=== PATIENT | female | born 1940 | race Caucasian/White ===

== ENCOUNTER 2022-07-30 16:59 | Emergency (ER) | payer BC ==
[~2022-07-30] VITALS: Ht 162.6 cm; Wt 50.3 kg
[2022-07-30 17:00] VITALS: BP_SYST 135
--- NOTE | 2022-07-30 17:30 | NUR ---
Patient to ER bed 02 to gown for evaluation. Side rails up.
--- NOTE | 2022-07-30 17:35 | NUR ---
PATIENT BROUGHT IN ACCOMPANIED BY COMPLAINING OF BILATERAL TEMPORAL FIERRO X 1 WEEK. 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 WAS SEEN BY PMD AND CT DONE ON THURSDAY AND WAS NEGATIVE. DENIES ANY BLURRED VISION OR DIZZINESS. PATIENT AOX4. PAIN 4/ REPORTS GIVING PATIENT TYLENOL WITH NO RELIEF. AWAITING MD SALGUERO.
--- NOTE | 2022-07-30 17:38 | NUR ---
ER Dr. RODRIGUEZ at bedside examining patient.
--- NOTE | 2022-07-30 17:40 | NUR ---
Patient bib spouse from home. Patient a&ox4. Chief Complaint: Frontal FIERRO rated at 5/10 x1d. Patient stable in bed with spouse at bedside.
[2022-07-30] MEDS ORDERED: HYDROcodone/ACETAMIN 7.5-325 MG TAB PO ONE (17:45)
[2022-07-30] MEDS ORDERED: IBUPROFEN 600 MG TABLET PO ONE (17:45)
[2022-07-30] MEDS ORDERED: DONE10TA4 PO (17:51)
[2022-07-30] MEDS ORDERED: MEMA10TA56 PO (17:51)
[2022-07-30] MEDS ORDERED: CLOP75TA32 PO (17:51)
[2022-07-30] MEDS ORDERED: PRED10TA PO (17:51)
[2022-07-30] MEDS ORDERED: DOXY100C5 PO (17:51)
[2022-07-30] MEDS ORDERED: LIP80 PO (17:51)
[2022-07-30] MEDS ORDERED: DULO20CA PO (17:51)
--- NOTE | 2022-07-30 17:51 | NUR ---
Medication reconciliation completed with information provided by PATIENT'S BOTTLE. Any prior medication reconciliation on file was reviewed and corrected.
--- NOTE | 2022-07-30 17:58 | NUR ---
MEDICATED PER MD ORDERS. INFORMED AWAITING BLOOD TEST RESULTS AND PAIN REASSESSMENT
[2022-07-30 18:11] LABS: BASOPHILS % (AUTO) 0.3 % (0.0-2.0); EOSINOPHILS % (AUTO) 0.4 % (0.0-4.0); HEMATOCRIT 39.8 % (36-48); HEMOGLOBIN 13.2 g/dL (12.0-16.0); LYMPHOCYTES # (AUTO) 2.1 K/uL (1.0-5.5); LYMPHOCYTES % (AUTO) 20.1 % (20.5-51.5); MEAN CORPUSCULAR HEMOGLOBIN 30 pg (27-31); MEAN CORPUSCULAR HGB CONC 33 % (32-36); MEAN CORPUSCULAR VOLUME 91 fL (79.0-98.0); MONOCYTES # (AUTO) 0.9 K/uL (0.0-1.0); MONOCYTES % (AUTO) 8.9 % (1.7-9.3); NEUTROPHILS # (AUTO) 7.2 K/uL (1.8-7.7); NEUTROPHILS % (AUTO) 70.3 % (40.0-70.0); PLATELET COUNT (AUTO) 212 K/uL (130-430); RED BLOOD CELL COUNT(AUTO) 4.39 MIL/uL (4.2-6.2); RED CELL DISTRIBUTION WIDTH 14.4 % (9.0-15.0); WHITE BLOOD COUNT (AUTO) 10.3 K/uL (4.8-10.8)
[2022-07-30 18:15] LABS: ERYTHROCYTE SEDIMENTATION RATE 8 MM/HR (0-20)
[2022-07-30 18:23] LABS: ALANINE AMINOTRANSFERASE 94 U/L (12-78); ALBUMIN 3.3 g/dL (3.4-4.8); ANION GAP 6 (5-15); ASPARTATE AMINOTRANSFERASE 64 U/L (10-37); CALCIUM 8.8 mg/dL (8.4-11.0); CHLORIDE 103 mmol/L (98-107); CREATININE 0.99 mg/dL (0.55-1.30); GLUCOSE 78 mg/dL (70-99); TOTAL BILIRUBIN 0.4 mg/dL (0.0-1.0); UREA NITROGEN, BLOOD 23 mg/dL (8-21)
[2022-07-30 18:24] LABS: C-REACTIVE PROTEIN QUANT < 0.2 mg/dL (0-0.5)
--- NOTE | 2022-07-30 18:29 | NUR ---
Pain reassessment patient reports 8/10 pain. Patient was sitting up right when medication was administered PO. Patient reported pain at 5/10 premedication. Patient's HOB elevated to 30 degrees, and lights turned off. Patient declined ice pack.
[2022-07-30] MEDS ORDERED: MORPHINE 2 MG/ML INJ. SYRINGE IM ONE (18:45)
[2022-07-30] MEDS ORDERED: HYDR-3917 PO (19:11)
[2022-07-30] MEDS ORDERED: IBUP-2018 PO (19:11)
[2022-07-30 19:38] VITALS: BP_SYST 126
--- NOTE | 2022-07-30 19:38 | NUR ---
Patient given written and verbal discharge instructions and verbalizes understanding. ER MD discussed with patient the results and treatment provided. Patient in stable condition. ID arm band removed. Rx of motrin and norco given. Patient educated on pain management and to follow up with PMD. Pain Scale 0/10 Opportunity for questions provided and answered. Medication side effect fact sheet provided.
== END 2022-07-30 19:38 | disposition home or self-care (01) ==
LOC: SED 16:59
DX: R51.9 Headache, unspecified (principal); I10 Essential (primary) hypertension; Z79.899 Other long term (current) drug therapy
CPT/HCPCS: 99283; 80053; 85025; 85651; 86140; 36415; 96372; J2270

== ENCOUNTER 2022-08-01 15:25 | Emergency (ER) | payer BC ==
[~2022-08-01] VITALS: Ht 162.6 cm; Wt 50.3 kg
[~2022-08-01 15:25] MED LIST: CLOP75TA32 PO; DONE10TA4 PO; DOXY100C5 PO; DULO20CA PO; HYDR-3917 PO; IBUP-2018 PO; LIP80 PO; MEMA10TA56 PO; PRED10TA PO
[2022-08-01 16:00] VITALS: BP_SYST 141
--- NOTE | 2022-08-01 16:00 | NUR ---
Patient to ER bed 02 to gown for evaluation. Side rails up. Report given to ERIKA ARNOLD
--- NOTE | 2022-08-01 16:01 | NUR ---
PT BIB AWAKE AND ALERT AOX 4. NO SOB OR DISTRESS. PT C/O HEAD ACHES. PT STATES PAIN 11/24. PT DENIES N/V/D. PT HAS HX OF 2 CVA WITH NO DEFICITS.
--- NOTE | 2022-08-01 16:05 | NUR ---
MD DR CLEMONS AT BEDSIDE
[2022-08-01 16:10] LABS: BILIRUBIN,URINE NEGATIVE (NEGATIVE); BLOOD, URINE NEGATIVE (NEGATIVE); CLARITY/URINE CLEAR (CLEAR); COLOR,URINE YELLOW (YELLOW); GLUCOSE,URINE NEGATIVE (NEGATIVE); KETONES,URINE TRACE (NEGATIVE); LEUKOCYTE ESTERASE ,URINE TRACE (NEGATIVE); NITRITE, URINE NEGATIVE (NEGATIVE); PH,URINE 5.5 (5.0-8.0); PROTEIN URINE 1+ (NEGATIVE); UROBILINOGEN,URINE 0.2 (0.2-1.0)
[2022-08-01] MEDS ORDERED: DIPHENHYDRAMINE INJ 50 MG/ML VIAL IVP ONE (16:15)
[2022-08-01] MEDS ORDERED: METOCLOPRAMIDE HCL 10 MG/2 ML VIAL IVP ONE (16:15)
[2022-08-01] MEDS ORDERED: KETOROLAC TROMETHAMINE 15 MG VIAL IVP ONE (16:15)
[2022-08-01 16:24] LABS: BACTERIA,URINE FEW /HPF (None Seen); MUCUS,URINE 1+ /LPF (None Seen); RBC,URINE 0-3 /HPF (0-3)
[2022-08-01 17:37] VITALS: BP_SYST 133
--- NOTE | 2022-08-01 17:38 | NUR ---
UPON D/C PT AND DECLINED A W/C
--- NOTE | 2022-08-01 17:38 | NUR ---
Patient given written and verbal discharge instructions and verbalizes understanding. ER MD DR CLEMONS discussed with patient the results and treatment provided. Patient in stable condition. ID arm band removed. IV catheter removed intact and dressing applied, no active bleeding. Patient educated on pain management and to follow up with PMD. Pain Scale 2/10. Opportunity for questions provided and answered. Medication side effect fact sheet provided.
== END 2022-08-01 17:38 | disposition home or self-care (01) ==
LOC: SED 15:25
DX: R51.9 Headache, unspecified (principal); I10 Essential (primary) hypertension; Z79.899 Other long term (current) drug therapy
CPT/HCPCS: 99284; 96374; 96375; 81000; 93005; J1200; J1885; J2765

== ENCOUNTER 2022-09-20 18:35 | Emergency (ER) | payer BC ==
[~2022-09-20] VITALS: Ht 157.5 cm; Wt 65.8 kg
[2022-09-20 18:50] VITALS: BP_SYST 184
[2022-09-20] MEDS ORDERED: hydrALAZINE HCL 20 MG/ML VIAL IVP ONE (19:15)
[2022-09-20 19:33] LABS: BASOPHILS % (AUTO) 0.4 % (0.0-2.0); EOSINOPHILS # (AUTO) 0.1 K/uL (0.0-0.4); HEMATOCRIT 41.4 % (36-48); HEMOGLOBIN 13.8 g/dL (12.0-16.0); LYMPHOCYTES % (AUTO) 24.1 % (20.5-51.5); MEAN CORPUSCULAR HEMOGLOBIN 31 pg (27-31); MEAN CORPUSCULAR HGB CONC 33 % (32-36); MEAN CORPUSCULAR VOLUME 92 fL (79.0-98.0); MONOCYTES # (AUTO) 0.7 K/uL (0.0-1.0); MONOCYTES % (AUTO) 8.1 % (1.7-9.3); NEUTROPHILS # (AUTO) 5.5 K/uL (1.8-7.7); NEUTROPHILS % (AUTO) 66.4 % (40.0-70.0); PLATELET COUNT (AUTO) 172 K/uL (130-430); RED CELL DISTRIBUTION WIDTH 15.3 % (9.0-15.0); WHITE BLOOD COUNT (AUTO) 8.3 K/uL (4.8-10.8)
[2022-09-20 19:47] LABS: ANION GAP 9 (5-15); CALCIUM 8.6 mg/dL (8.4-11.0); CHLORIDE 105 mmol/L (98-107); CREATININE 1.02 mg/dL (0.55-1.30); GLUCOSE 114 mg/dL (70-99); UREA NITROGEN, BLOOD 16 mg/dL (8-21)
[2022-09-20 19:54] LABS: ALANINE AMINOTRANSFERASE 44 U/L (12-78); ALBUMIN 3.6 g/dL (3.4-4.8); ASPARTATE AMINOTRANSFERASE 31 U/L (10-37); TOTAL BILIRUBIN 0.8 mg/dL (0.0-1.0)
[2022-09-20 20:33] VITALS: BP_SYST 155
== END 2022-09-20 20:34 | disposition home or self-care (01) ==
LOC: SED 18:35
DX: I10 Essential (primary) hypertension (principal); R51.9 Headache, unspecified; Z20.822 Contact with and (suspected) exposure to COVID-19; Z86.73 Personal history of transient ischemic attack (TIA), and cerebral infarction without residual deficits
CPT/HCPCS: 99284; 96374; 87426; 80053; 85025; 84484; 36415; 93005; J0360

== ENCOUNTER 2023-03-26 19:12 | Emergency (ER) | payer BC ==
[~2023-03-26] VITALS: Ht 167.6 cm; Wt 59.0 kg
[2023-03-26 19:15] VITALS: BP_SYST 161; PULSE 81; RESP 20; TEMP 97.8; O2SAT 97
[2023-03-26 20:23] LABS: BASOPHILS # (AUTO) 0.1 K/uL (0.0-0.2); BASOPHILS % (AUTO) 0.6 % (0.0-2.0); EOSINOPHILS # (AUTO) 0.1 K/uL (0.0-0.4); EOSINOPHILS % (AUTO) 0.6 % (0.0-4.0); HEMATOCRIT 39.3 % (36-48); HEMOGLOBIN 13.2 g/dL (12.0-16.0); LYMPHOCYTES # (AUTO) 1.3 K/uL (1.0-5.5); LYMPHOCYTES % (AUTO) 11.7 % (20.5-51.5); MEAN CORPUSCULAR HEMOGLOBIN 30 pg (27-31); MEAN CORPUSCULAR HGB CONC 34 % (32-36); MEAN CORPUSCULAR VOLUME 91 fL (79.0-98.0); MONOCYTES # (AUTO) 0.8 K/uL (0.0-1.0); MONOCYTES % (AUTO) 7.2 % (1.7-9.3); NEUTROPHILS % (AUTO) 79.9 % (40.0-70.0); PLATELET COUNT (AUTO) 254 K/uL (130-430); RED BLOOD CELL COUNT(AUTO) 4.35 MIL/uL (4.2-6.2); RED CELL DISTRIBUTION WIDTH 13.7 % (9.0-15.0); WHITE BLOOD COUNT (AUTO) 11.2 K/uL (4.8-10.8)
[2023-03-26 20:38] LABS: ANION GAP 6 (5-15); CALCIUM 8.8 mg/dL (8.4-11.0); CARBON DIOXIDE 31 mmol/L (23-29); CHLORIDE 104 mmol/L (98-107); CREATININE 0.89 mg/dL (0.55-1.30); GLUCOSE 109 mg/dL (74-106); SODIUM SERUM 141 mmol/L (136-145); UREA NITROGEN, BLOOD 14 mg/dL (8-21)
[2023-03-26 20:41] LABS: INR 1.1 (0.8-1.2); PROTHROMBIN TIME 11.1 SECS (9.5-12.5)
[2023-03-26 20:43] LABS: ALANINE AMINOTRANSFERASE 18 U/L (12-78); ALBUMIN 3.2 g/dL (3.4-4.8); ASPARTATE AMINOTRANSFERASE 23 U/L (10-37); TOTAL BILIRUBIN 1.1 mg/dL (0.0-1.0)
[2023-03-26 20:51] LABS: POTASSIUM 4.3 mmol/L (3.5-5.1)
[2023-03-26 21:31] VITALS: BP_SYST 163; PULSE 74; RESP 18; O2SAT 97
== END 2023-03-26 21:31 | disposition home or self-care (01) ==
LOC: SED 19:12
DX: Z00.00 Encounter for general adult medical examination without abnormal findings (principal); E16.2 Hypoglycemia, unspecified; R41.82 Altered mental status, unspecified; I10 Essential (primary) hypertension; Z79.899 Other long term (current) drug therapy
CPT/HCPCS: 36415; 70450-TC; 76376; 80053; 82962; 85025; 85610-TC; 85730-TC; 99284

== ENCOUNTER → 2023-04-20 | Emergency (ER) | payer BC ==
[~2023-04-20] VITALS: Ht 157.5 cm; Wt 52.6 kg
[~2023-04-20] MED LIST changes: +ATOR-1 PO; +DULO20CA19 PO; +LIDO700A30 TP; +METO-540 PO
[2023-04-20 17:39] VITALS: BP_SYST 138; PULSE 75; RESP 18; TEMP 98.3; O2SAT 97
== END | disposition left against medical advice (07) ==
LOC: SED 17:16
DX: M79.662 Pain in left lower leg (principal); Z53.21 Procedure and treatment not carried out due to patient leaving prior to being seen by health care provider
CPT/HCPCS: 99281

== ENCOUNTER 2023-04-21 11:25 | Inpatient (IN) | payer BC ==
[~2023-04-21] VITALS: Ht 157.5 cm; Wt 54.4 kg
[~2023-04-21 11:25] MED LIST changes: -ATOR-1 PO; -DULO20CA19 PO; -LIDO700A30 TP; -METO-540 PO
[2023-04-21 11:38] VITALS: BP_SYST 152; PULSE 72; RESP 18; TEMP 97.4; O2SAT 93
[2023-04-21] MEDS ORDERED: traMADol HCL HCL 50 MG TABLET (ULTRAM) PO ONE (12:30)
[2023-04-21 12:40] LABS: BASOPHILS % (AUTO) 0.3 % (0.0-2.0); EOSINOPHILS # (AUTO) 0.1 K/uL (0.0-0.4); EOSINOPHILS % (AUTO) 0.6 % (0.0-4.0); HEMATOCRIT 40.9 % (36-48); HEMOGLOBIN 13.7 g/dL (12.0-16.0); LYMPHOCYTES # (AUTO) 0.8 K/uL (1.0-5.5); LYMPHOCYTES % (AUTO) 8.9 % (20.5-51.5); MEAN CORPUSCULAR HEMOGLOBIN 30 pg (27-31); MEAN CORPUSCULAR HGB CONC 34 % (32-36); MEAN CORPUSCULAR VOLUME 90 fL (79.0-98.0); MONOCYTES # (AUTO) 0.6 K/uL (0.0-1.0); MONOCYTES % (AUTO) 6.2 % (1.7-9.3); NEUTROPHILS # (AUTO) 7.8 K/uL (1.8-7.7); PLATELET COUNT (AUTO) 230 K/uL (130-430); RED BLOOD CELL COUNT(AUTO) 4.55 MIL/uL (4.2-6.2); RED CELL DISTRIBUTION WIDTH 14.4 % (9.0-15.0); WHITE BLOOD COUNT (AUTO) 9.2 K/uL (4.8-10.8)
[2023-04-21 12:54] LABS: ANION GAP 6 (5-15); CALCIUM 9.4 mg/dL (8.4-11.0); CARBON DIOXIDE 30 mmol/L (23-29); CHLORIDE 102 mmol/L (98-107); CREATININE 0.86 mg/dL (0.55-1.30); GLUCOSE 101 mg/dL (74-106); POTASSIUM 4.1 mmol/L (3.5-5.1); SODIUM SERUM 138 mmol/L (136-145); UREA NITROGEN, BLOOD 12 mg/dL (8-21)
[2023-04-21] MEDS ORDERED: ATOR-1 PO (13:57)
[2023-04-21] MEDS ORDERED: DULO20CA19 PO (13:57)
[2023-04-21] MEDS ORDERED: METO-540 PO (13:57)
[2023-04-21] MEDS ORDERED: LIDO700A30 TP (13:57)
[2023-04-21] MEDS ORDERED: LORazepam 2 MG/ML VIAL IVP ONE (17:45)
[2023-04-21 20:00] VITALS: BP_SYST 144; BP_SYST 152; PULSE 74; PULSE 75; RESP 16; RESP 18; TEMP 97.5; TEMP 97.6; O2SAT 95; O2SAT 96
[2023-04-22] VITALS (8 sets, daily range): BP systolic 114–159; PULSE 70–87; RESP 16–18; TEMP 96.8–98.8; O2SAT 95–98
[2023-04-22] MEDS ORDERED: ONDANSETRON HCL 4 MG/2 ML VIAL IVP PRN (07:15)
[2023-04-22] MEDS ORDERED: ACETAMINOPHEN 325 MG TABLET PO PRN ×2 (07:15→07:30)
[2023-04-22] MEDS ORDERED: HYDROcodone/ACETAMIN 5-325 MG TAB (NORCO/ VICODIN) PO PRN ×2 (07:15→07:30)
[2023-04-22] MEDS ORDERED: NALOXONE HCL 0.4 MG/ML AMP (NARCAN) IVP PRN ×2 (07:15)
[2023-04-22] MEDS ORDERED: LIDOCAINE PATCH 5% 1 EA TP SCH (09:00)
[2023-04-22] MEDS: MEMANTINE HCL 5 MG TABLET PO SCH ×2 (09:17→20:42)
[2023-04-22] MEDS: DONEPEZIL HCL 5 MG TABLET (ARICEPT) PO SCH (09:17)
[2023-04-22] MEDS: DOXYCYCLINE HYCLATE 100 MG CAPSULE PO SCH ×2 (09:18→20:42)
[2023-04-22] MEDS: METOPROLOL SUCCINATE 25 MG TAB.SR.24H (TOPROL XL) PO SCH (09:18)
[2023-04-22] MEDS: CLOPIDOGREL BISULFATE 75 MG TABLET PO SCH (09:18)
[2023-04-22] MEDS: DULoxetine HCL 20 MG CAPSULE.DR PO SCH (09:19)
[2023-04-22] MEDS: LIDOCAINE 4% PATCH TP SCH (09:19)
[2023-04-22] MEDS: NORMAL SALINE 5 ML DISP.SYRIN IVF SCH ×2 (14:00→21:40)
[2023-04-22] MEDS: LORazepam 2 MG/ML VIAL IVP PRN (20:10)
[2023-04-22] MEDS: ATORVASTATIN 20 MG TABLET PO SCH (20:42)
[2023-04-23] VITALS (7 sets, daily range): BP systolic 119–155; PULSE 64–86; RESP 15–20; TEMP 97.3–98.2; O2SAT 93–98
[2023-04-23 06:37] LABS: ANION GAP 11 (5-15); CALCIUM 9.9 mg/dL (8.4-11.0); CARBON DIOXIDE 28 mmol/L (23-29); CHLORIDE 100 mmol/L (98-107); CREATININE 0.75 mg/dL (0.55-1.30); GLUCOSE 96 mg/dL (74-106); POTASSIUM 3.8 mmol/L (3.5-5.1); SODIUM SERUM 139 mmol/L (136-145); UREA NITROGEN, BLOOD 13 mg/dL (8-21)
[2023-04-23] MEDS: NORMAL SALINE 5 ML DISP.SYRIN IVF SCH ×3 (06:51→21:18)
[2023-04-23 07:24] LABS: BASOPHILS % (AUTO) 0.2 % (0.0-2.0); EOSINOPHILS % (AUTO) 0.3 % (0.0-4.0); HEMATOCRIT 43.6 % (36-48); HEMOGLOBIN 14.2 g/dL (12.0-16.0); LYMPHOCYTES # (AUTO) 1.6 K/uL (1.0-5.5); LYMPHOCYTES % (AUTO) 12.2 % (20.5-51.5); MEAN CORPUSCULAR HEMOGLOBIN 30 pg (27-31); MEAN CORPUSCULAR HGB CONC 33 % (32-36); MEAN CORPUSCULAR VOLUME 91 fL (79.0-98.0); MONOCYTES # (AUTO) 1.2 K/uL (0.0-1.0); MONOCYTES % (AUTO) 9.3 % (1.7-9.3); NEUTROPHILS # (AUTO) 10.1 K/uL (1.8-7.7); PLATELET COUNT (AUTO) 213 K/uL (130-430); RED BLOOD CELL COUNT(AUTO) 4.79 MIL/uL (4.2-6.2); RED CELL DISTRIBUTION WIDTH 14.7 % (9.0-15.0); WHITE BLOOD COUNT (AUTO) 12.9 K/uL (4.8-10.8)
[2023-04-23] MEDS: CLOPIDOGREL BISULFATE 75 MG TABLET PO SCH ×2 (09:00→09:06)
[2023-04-23] MEDS: DULoxetine HCL 20 MG CAPSULE.DR PO SCH (09:05)
[2023-04-23] MEDS: MEMANTINE HCL 5 MG TABLET PO SCH ×2 (09:06→21:17)
[2023-04-23] MEDS: DOXYCYCLINE HYCLATE 100 MG CAPSULE PO SCH ×2 (09:06→21:17)
[2023-04-23] MEDS: METOPROLOL SUCCINATE 25 MG TAB.SR.24H (TOPROL XL) PO SCH (09:07)
[2023-04-23] MEDS: DONEPEZIL HCL 5 MG TABLET (ARICEPT) PO SCH (09:08)
[2023-04-23] MEDS: LIDOCAINE 4% PATCH TP SCH (10:50)
[2023-04-23] MEDS: LORazepam 2 MG/ML VIAL IVP PRN ×2 (13:26→18:36)
[2023-04-23] MEDS: ATORVASTATIN 20 MG TABLET PO SCH (21:17)
[2023-04-24 00:03] VITALS: BP_SYST 132; PULSE 71; RESP 18; TEMP 96.8; O2SAT 95
[2023-04-24 06:18] LABS: BASOPHILS % (AUTO) 0.1 % (0.0-2.0); EOSINOPHILS % (AUTO) 0.1 % (0.0-4.0); HEMATOCRIT 43.2 % (36-48); HEMOGLOBIN 14.5 g/dL (12.0-16.0); LYMPHOCYTES # (AUTO) 0.7 K/uL (1.0-5.5); LYMPHOCYTES % (AUTO) 4.9 % (20.5-51.5); MEAN CORPUSCULAR HEMOGLOBIN 30 pg (27-31); MEAN CORPUSCULAR HGB CONC 34 % (32-36); MEAN CORPUSCULAR VOLUME 90 fL (79.0-98.0); MONOCYTES # (AUTO) 1.2 K/uL (0.0-1.0); MONOCYTES % (AUTO) 8.2 % (1.7-9.3); NEUTROPHILS % (AUTO) 86.7 % (40.0-70.0); PLATELET COUNT (AUTO) 195 K/uL (130-430); RED BLOOD CELL COUNT(AUTO) 4.78 MIL/uL (4.2-6.2); RED CELL DISTRIBUTION WIDTH 14.5 % (9.0-15.0)
[2023-04-24 06:31] LABS: ANION GAP 12 (5-15); CALCIUM 9.9 mg/dL (8.4-11.0); CARBON DIOXIDE 28 mmol/L (23-29); CHLORIDE 100 mmol/L (98-107); CREATININE 0.69 mg/dL (0.55-1.30); GLUCOSE 98 mg/dL (74-106); POTASSIUM 3.9 mmol/L (3.5-5.1); SODIUM SERUM 140 mmol/L (136-145); UREA NITROGEN, BLOOD 15 mg/dL (8-21)
[2023-04-24] MEDS: NORMAL SALINE 5 ML DISP.SYRIN IVF SCH ×3 (06:37→20:49)
[2023-04-24 08:00] VITALS: BP_SYST 165; PULSE 71; RESP 15; TEMP 96.9; O2SAT 96
[2023-04-24] MEDS: DOXYCYCLINE HYCLATE 100 MG CAPSULE PO SCH ×2 (09:00→20:48)
[2023-04-24] MEDS: CLOPIDOGREL BISULFATE 75 MG TABLET PO SCH (09:00)
[2023-04-24] MEDS: DULoxetine HCL 20 MG CAPSULE.DR PO SCH (09:00)
[2023-04-24] MEDS: METOPROLOL SUCCINATE 25 MG TAB.SR.24H (TOPROL XL) PO SCH (09:00)
[2023-04-24] MEDS: DONEPEZIL HCL 5 MG TABLET (ARICEPT) PO SCH (09:00)
[2023-04-24] MEDS: MEMANTINE HCL 5 MG TABLET PO SCH ×2 (09:00→20:48)
[2023-04-24 12:00] VITALS: BP_SYST 165; PULSE 71; RESP 18; TEMP 96.9; O2SAT 96
[2023-04-24 16:00] VITALS: BP_SYST 143; PULSE 108; RESP 19; TEMP 98.2; O2SAT 99
[2023-04-24 19:00] VITALS: O2SAT 95
[2023-04-24] MEDS: LIDOCAINE 4% PATCH TP SCH (19:21)
[2023-04-24 20:00] VITALS: BP_SYST 146; PULSE 88; RESP 20; TEMP 97; O2SAT 95
[2023-04-24] MEDS: ATORVASTATIN 20 MG TABLET PO SCH (20:48)
[2023-04-25 00:01] VITALS: BP_SYST 157; PULSE 90; RESP 16; TEMP 98; O2SAT 94
[2023-04-25 04:00] VITALS: BP_SYST 148; PULSE 85; RESP 18; TEMP 98.2; O2SAT 95
[2023-04-25] MEDS: NORMAL SALINE 5 ML DISP.SYRIN IVF SCH ×3 (06:11→21:59)
[2023-04-25 07:26] LABS: ANION GAP 11 (5-15); CALCIUM 8.6 mg/dL (8.4-11.0); CARBON DIOXIDE 27 mmol/L (23-29); CHLORIDE 101 mmol/L (98-107); CREATININE 0.82 mg/dL (0.55-1.30); GLUCOSE 102 mg/dL (74-106); POTASSIUM 3.2 mmol/L (3.5-5.1); SODIUM SERUM 139 mmol/L (136-145); UREA NITROGEN, BLOOD 20 mg/dL (8-21)
[2023-04-25 08:00] VITALS: BP_SYST 138; PULSE 89; RESP 18; TEMP 97.9; O2SAT 96
[2023-04-25 08:35] LABS: BASOPHILS % (AUTO) 0.2 % (0.0-2.0); EOSINOPHILS % (AUTO) 0.1 % (0.0-4.0); HEMATOCRIT 37.9 % (36-48); HEMOGLOBIN 12.7 g/dL (12.0-16.0); LYMPHOCYTES # (AUTO) 0.8 K/uL (1.0-5.5); LYMPHOCYTES % (AUTO) 7.6 % (20.5-51.5); MEAN CORPUSCULAR HEMOGLOBIN 30 pg (27-31); MEAN CORPUSCULAR HGB CONC 34 % (32-36); MEAN CORPUSCULAR VOLUME 89 fL (79.0-98.0); MONOCYTES # (AUTO) 1.5 K/uL (0.0-1.0); MONOCYTES % (AUTO) 14.8 % (1.7-9.3); NEUTROPHILS # (AUTO) 7.7 K/uL (1.8-7.7); NEUTROPHILS % (AUTO) 77.3 % (40.0-70.0); RED BLOOD CELL COUNT(AUTO) 4.23 MIL/uL (4.2-6.2); RED CELL DISTRIBUTION WIDTH 14.4 % (9.0-15.0)
[2023-04-25 09:03] LABS: WHITE BLOOD COUNT (AUTO) 9.9 K/uL (4.8-10.8)
[2023-04-25 09:06] LABS: ERYTHROCYTE SEDIMENTATION RATE 26 MM/HR (0-20)
[2023-04-25] MEDS: METOPROLOL SUCCINATE 25 MG TAB.SR.24H (TOPROL XL) PO SCH (09:20)
[2023-04-25] MEDS: CLOPIDOGREL BISULFATE 75 MG TABLET PO SCH (09:20)
[2023-04-25] MEDS: DONEPEZIL HCL 5 MG TABLET (ARICEPT) PO SCH (09:21)
[2023-04-25] MEDS: DOXYCYCLINE HYCLATE 100 MG CAPSULE PO SCH ×2 (09:21→21:55)
[2023-04-25] MEDS: DULoxetine HCL 20 MG CAPSULE.DR PO SCH (09:23)
[2023-04-25] MEDS: MEMANTINE HCL 5 MG TABLET PO SCH ×2 (09:39→21:55)
[2023-04-25 11:03] LABS: PLATELET COUNT (AUTO) 178 K/uL (130-430)
[2023-04-25 11:57] VITALS: BP_SYST 128; PULSE 83; RESP 17; TEMP 98.5; O2SAT 95
[2023-04-25] MEDS: KCL 20 mEq in 100 mL (PREMIX) 100 ML IV SCH ×2 (12:50→15:45)
[2023-04-25] MEDS: LORazepam 2 MG/ML VIAL IVP PRN (15:35)
[2023-04-25 16:17] VITALS: BP_SYST 167; PULSE 73; RESP 17; TEMP 98.1; O2SAT 97
[2023-04-25 20:27] VITALS: BP_SYST 156; PULSE 77; RESP 18; TEMP 97.1; O2SAT 98
[2023-04-25] MEDS: ATORVASTATIN 20 MG TABLET PO SCH (21:55)
[2023-04-25] MEDS: LIDOCAINE 4% PATCH TP SCH (21:58)
[2023-04-26] VITALS (7 sets, daily range): BP systolic 133–145; PULSE 63–87; RESP 16–20; TEMP 97–98.5; O2SAT 95–98
[2023-04-26] MEDS: NORMAL SALINE 5 ML DISP.SYRIN IVF SCH ×3 (05:25→22:18)
[2023-04-26 06:56] LABS: ANION GAP 9 (5-15); CARBON DIOXIDE 27 mmol/L (23-29); CHLORIDE 103 mmol/L (98-107); CREATININE 0.64 mg/dL (0.55-1.30); GLUCOSE 99 mg/dL (74-106); POTASSIUM 3.4 mmol/L (3.5-5.1); SODIUM SERUM 139 mmol/L (136-145); UREA NITROGEN, BLOOD 19 mg/dL (8-21)
[2023-04-26 07:35] LABS: BASOPHILS % (AUTO) 0.3 % (0.0-2.0); EOSINOPHILS % (AUTO) 0.2 % (0.0-4.0); HEMATOCRIT 37.6 % (36-48); HEMOGLOBIN 12.4 g/dL (12.0-16.0); LYMPHOCYTES # (AUTO) 0.9 K/uL (1.0-5.5); LYMPHOCYTES % (AUTO) 13.7 % (20.5-51.5); MEAN CORPUSCULAR HEMOGLOBIN 30 pg (27-31); MEAN CORPUSCULAR HGB CONC 33 % (32-36); MEAN CORPUSCULAR VOLUME 90 fL (79.0-98.0); MONOCYTES % (AUTO) 14.7 % (1.7-9.3); NEUTROPHILS # (AUTO) 4.7 K/uL (1.8-7.7); NEUTROPHILS % (AUTO) 71.1 % (40.0-70.0); PLATELET COUNT (AUTO) 179 K/uL (130-430); RED BLOOD CELL COUNT(AUTO) 4.18 MIL/uL (4.2-6.2); RED CELL DISTRIBUTION WIDTH 14.6 % (9.0-15.0)
[2023-04-26 07:37] LABS: WHITE BLOOD COUNT (AUTO) 6.7 K/uL (4.8-10.8)
[2023-04-26 07:44] LABS: ERYTHROCYTE SEDIMENTATION RATE 22 MM/HR (0-20)
[2023-04-26] MEDS: CLOPIDOGREL BISULFATE 75 MG TABLET PO SCH (09:26)
[2023-04-26] MEDS: DOXYCYCLINE HYCLATE 100 MG CAPSULE PO SCH ×2 (09:27→21:00)
[2023-04-26] MEDS: MEMANTINE HCL 5 MG TABLET PO SCH ×2 (09:27→21:00)
[2023-04-26] MEDS: METOPROLOL SUCCINATE 25 MG TAB.SR.24H (TOPROL XL) PO SCH (09:27)
[2023-04-26] MEDS: DONEPEZIL HCL 5 MG TABLET (ARICEPT) PO SCH (09:28)
[2023-04-26] MEDS: DULoxetine HCL 20 MG CAPSULE.DR PO SCH (09:28)
[2023-04-26] MEDS: LORazepam 2 MG/ML VIAL IVP PRN (15:53)
[2023-04-26] MEDS: LIDOCAINE 4% PATCH TP SCH (18:44)
[2023-04-26] MEDS: ATORVASTATIN 20 MG TABLET PO SCH (21:00)
[2023-04-27 01:00] VITALS: BP_SYST 164; PULSE 81; RESP 16; TEMP 97.6; O2SAT 94
[2023-04-27 05:31] LABS: ERYTHROCYTE SEDIMENTATION RATE 21 MM/HR (0-20)
[2023-04-27] MEDS: NORMAL SALINE 5 ML DISP.SYRIN IVF SCH ×3 (05:36→22:39)
[2023-04-27 05:38] LABS: BASOPHILS % (AUTO) 0.3 % (0.0-2.0); EOSINOPHILS % (AUTO) 0.1 % (0.0-4.0); HEMATOCRIT 38.5 % (36-48); HEMOGLOBIN 12.8 g/dL (12.0-16.0); LYMPHOCYTES # (AUTO) 0.7 K/uL (1.0-5.5); LYMPHOCYTES % (AUTO) 11.9 % (20.5-51.5); MEAN CORPUSCULAR HEMOGLOBIN 30 pg (27-31); MEAN CORPUSCULAR HGB CONC 33 % (32-36); MEAN CORPUSCULAR VOLUME 90 fL (79.0-98.0); MONOCYTES # (AUTO) 0.7 K/uL (0.0-1.0); MONOCYTES % (AUTO) 11.8 % (1.7-9.3); NEUTROPHILS # (AUTO) 4.8 K/uL (1.8-7.7); NEUTROPHILS % (AUTO) 75.9 % (40.0-70.0); PLATELET COUNT (AUTO) 191 K/uL (130-430); RED BLOOD CELL COUNT(AUTO) 4.29 MIL/uL (4.2-6.2); RED CELL DISTRIBUTION WIDTH 14.6 % (9.0-15.0); WHITE BLOOD COUNT (AUTO) 6.3 K/uL (4.8-10.8)
[2023-04-27 06:37] LABS: ALANINE AMINOTRANSFERASE 22 U/L (12-78); ANION GAP 11 (5-15); ASPARTATE AMINOTRANSFERASE 39 U/L (10-37); CALCIUM 9.4 mg/dL (8.4-11.0); CARBON DIOXIDE 28 mmol/L (23-29); CHLORIDE 104 mmol/L (98-107); GLUCOSE 91 mg/dL (74-106); POTASSIUM 3.5 mmol/L (3.5-5.1); SODIUM SERUM 143 mmol/L (136-145); TOTAL BILIRUBIN 1.1 mg/dL (0.0-1.0); TOTAL PROTEIN, SERUM 6.8 g/dL (6.4-8.3); UREA NITROGEN, BLOOD 23 mg/dL (8-21)
[2023-04-27 08:00] VITALS: BP_SYST 146; PULSE 75; RESP 18; TEMP 97; O2SAT 96
[2023-04-27] MEDS: METOPROLOL SUCCINATE 25 MG TAB.SR.24H (TOPROL XL) PO SCH (09:00)
[2023-04-27] MEDS: DULoxetine HCL 20 MG CAPSULE.DR PO SCH (09:00)
[2023-04-27] MEDS: DONEPEZIL HCL 5 MG TABLET (ARICEPT) PO SCH (09:00)
[2023-04-27] MEDS: DOXYCYCLINE HYCLATE 100 MG CAPSULE PO SCH (09:00)
[2023-04-27] MEDS: CLOPIDOGREL BISULFATE 75 MG TABLET PO SCH (09:00)
[2023-04-27] MEDS: MEMANTINE HCL 5 MG TABLET PO SCH ×2 (09:00→22:38)
[2023-04-27 11:02] VITALS: BP_SYST 151; PULSE 73; RESP 16; TEMP 97; O2SAT 93
[2023-04-27 11:40] LABS: INR 1.1 (0.8-1.2)
[2023-04-27] MEDS: D5/0.45 NS 1,000 ML IV SCH ×2 (11:41→20:30)
[2023-04-27] MEDS ORDERED: NALOXONE HCL 0.4 MG/ML AMP (NARCAN) IVP ONE (12:00)
[2023-04-27] MEDS ORDERED: droNABinol 2.5 MG CAPSULE PO ONE (15:00)
[2023-04-27 15:22] VITALS: BP_SYST 143; PULSE 67; RESP 16; TEMP 97.7; O2SAT 94
[2023-04-27] MEDS: LIDOCAINE 4% PATCH TP SCH (19:00)
[2023-04-27 19:50] VITALS: O2SAT 97
[2023-04-27 20:00] VITALS: BP_SYST 158; PULSE 83; RESP 18; TEMP 97.9; O2SAT 97
[2023-04-28 00:03] VITALS: BP_SYST 155; PULSE 87; RESP 18; TEMP 97.9; O2SAT 94
[2023-04-28 05:35] LABS: BASOPHILS % (AUTO) 0.2 % (0.0-2.0); EOSINOPHILS % (AUTO) 0.2 % (0.0-4.0); HEMATOCRIT 36.8 % (36-48); HEMOGLOBIN 12.4 g/dL (12.0-16.0); LYMPHOCYTES # (AUTO) 1.2 K/uL (1.0-5.5); LYMPHOCYTES % (AUTO) 21.1 % (20.5-51.5); MEAN CORPUSCULAR HEMOGLOBIN 30 pg (27-31); MEAN CORPUSCULAR HGB CONC 34 % (32-36); MEAN CORPUSCULAR VOLUME 89 fL (79.0-98.0); MONOCYTES # (AUTO) 0.7 K/uL (0.0-1.0); MONOCYTES % (AUTO) 13.2 % (1.7-9.3); NEUTROPHILS # (AUTO) 3.6 K/uL (1.8-7.7); NEUTROPHILS % (AUTO) 65.3 % (40.0-70.0); PLATELET COUNT (AUTO) 199 K/uL (130-430); RED BLOOD CELL COUNT(AUTO) 4.15 MIL/uL (4.2-6.2); RED CELL DISTRIBUTION WIDTH 14.5 % (9.0-15.0); WHITE BLOOD COUNT (AUTO) 5.5 K/uL (4.8-10.8)
[2023-04-28 05:48] LABS: ANION GAP 8 (5-15); CALCIUM 9.1 mg/dL (8.4-11.0); CARBON DIOXIDE 30 mmol/L (23-29); CHLORIDE 103 mmol/L (98-107); CREATININE 0.76 mg/dL (0.55-1.30); GLUCOSE 115 mg/dL (74-106); POTASSIUM 3.4 mmol/L (3.5-5.1); SODIUM SERUM 141 mmol/L (136-145); UREA NITROGEN, BLOOD 18 mg/dL (8-21)
[2023-04-28] MEDS: NORMAL SALINE 5 ML DISP.SYRIN IVF SCH ×2 (06:03→22:54)
[2023-04-28] MEDS: D5/0.45 NS 1,000 ML IV SCH ×2 (06:26→16:30)
[2023-04-28 08:00] VITALS: BP_SYST 153; PULSE 71; RESP 16; TEMP 97; O2SAT 94
[2023-04-28] MEDS: DULoxetine HCL 20 MG CAPSULE.DR PO SCH (09:00)
[2023-04-28] MEDS: MEMANTINE HCL 5 MG TABLET PO SCH ×2 (09:00→22:55)
[2023-04-28] MEDS: droNABinol 2.5 MG CAPSULE PO SCH (09:00)
[2023-04-28] MEDS: DONEPEZIL HCL 5 MG TABLET (ARICEPT) PO SCH (09:00)
[2023-04-28] MEDS: METOPROLOL SUCCINATE 25 MG TAB.SR.24H (TOPROL XL) PO SCH (09:00)
[2023-04-28 11:05] VITALS: BP_SYST 153; PULSE 69; RESP 16; TEMP 97; O2SAT 93
[2023-04-28 15:03] VITALS: BP_SYST 116; PULSE 79; RESP 16; TEMP 97; O2SAT 95
[2023-04-28] MEDS: LIDOCAINE 4% PATCH TP SCH (19:00)
[2023-04-28 20:00] VITALS: BP_SYST 146; PULSE 89; RESP 16; TEMP 97.7; O2SAT 96
[2023-04-28] MEDS: ACYCLOVIR IV 500 MG in D5W 100 ML IV SCH (22:54)
[2023-04-29 00:39] VITALS: BP_SYST 141; PULSE 92; RESP 17; TEMP 97.4; O2SAT 95
[2023-04-29 05:53] LABS: BASOPHILS % (AUTO) 0.1 % (0.0-2.0); HEMATOCRIT 36.5 % (36-48); HEMOGLOBIN 12.8 g/dL (12.0-16.0); LYMPHOCYTES # (AUTO) 0.8 K/uL (1.0-5.5); LYMPHOCYTES % (AUTO) 9.5 % (20.5-51.5); MEAN CORPUSCULAR HEMOGLOBIN 31 pg (27-31); MEAN CORPUSCULAR HGB CONC 35 % (32-36); MEAN CORPUSCULAR VOLUME 87 fL (79.0-98.0); MONOCYTES # (AUTO) 0.8 K/uL (0.0-1.0); MONOCYTES % (AUTO) 9.5 % (1.7-9.3); NEUTROPHILS # (AUTO) 6.4 K/uL (1.8-7.7); NEUTROPHILS % (AUTO) 80.9 % (40.0-70.0); PLATELET COUNT (AUTO) 206 K/uL (130-430); RED BLOOD CELL COUNT(AUTO) 4.19 MIL/uL (4.2-6.2); RED CELL DISTRIBUTION WIDTH 14.2 % (9.0-15.0); WHITE BLOOD COUNT (AUTO) 7.9 K/uL (4.8-10.8)
[2023-04-29] MEDS: ACYCLOVIR IV 500 MG in D5W 100 ML IV SCH (06:19)
[2023-04-29] MEDS: NORMAL SALINE 5 ML DISP.SYRIN IVF SCH ×3 (06:19→22:00)
[2023-04-29] MEDS: D5/0.45 NS 1,000 ML IV SCH ×2 (06:19→12:30)
[2023-04-29 06:33] LABS: ANION GAP 10 (5-15); CARBON DIOXIDE 27 mmol/L (23-29); CHLORIDE 101 mmol/L (98-107); GLUCOSE 127 mg/dL (74-106); SODIUM SERUM 138 mmol/L (136-145); UREA NITROGEN, BLOOD 11 mg/dL (8-21)
[2023-04-29 06:38] LABS: INR 1.1 (0.8-1.2)
[2023-04-29 08:00] VITALS: BP_SYST 134; PULSE 79; RESP 16; TEMP 97.1; O2SAT 96
[2023-04-29] MEDS: METOPROLOL SUCCINATE 25 MG TAB.SR.24H (TOPROL XL) PO SCH (08:53)
[2023-04-29] MEDS: droNABinol 2.5 MG CAPSULE PO SCH (08:53)
[2023-04-29] MEDS: DONEPEZIL HCL 5 MG TABLET (ARICEPT) PO SCH (08:53)
[2023-04-29] MEDS: MEMANTINE HCL 5 MG TABLET PO SCH ×2 (08:53→21:00)
[2023-04-29] MEDS: KCL 40 mEq in D5W 1000 mL 1,000 ML IV SCH ×2 (09:00→15:24)
[2023-04-29] MEDS ORDERED: MAGNESIUM SULFATE 50 ML IV ONE (09:00)
[2023-04-29] MEDS ORDERED: ceFAZolin SODIUM 1 GM in D5W 100 ML IV ONE (09:30)
[2023-04-29] MEDS ORDERED: CEFAZOLIN 1 GM IVPB PREMIX 50 ML IV ONE (09:34)
[2023-04-29] MEDS ORDERED: fentaNYL CITRATE/PF 100 MCG/2 ML AMP ONE (11:31)
[2023-04-29] MEDS ORDERED: MIDAZOLAM HCL 5 MG/5 ML VIAL ONE (11:32)
[2023-04-29 13:26] VITALS: BP_SYST 147; PULSE 72; RESP 16; TEMP 97.7; O2SAT 95
[2023-04-29 16:46] LABS: BASOPHILS % (AUTO) 0.3 % (0.0-2.0); EOSINOPHILS % (AUTO) 0.1 % (0.0-4.0); HEMATOCRIT 35.7 % (36-48); HEMOGLOBIN 12.2 g/dL (12.0-16.0); LYMPHOCYTES # (AUTO) 0.9 K/uL (1.0-5.5); LYMPHOCYTES % (AUTO) 13.1 % (20.5-51.5); MEAN CORPUSCULAR HEMOGLOBIN 30 pg (27-31); MEAN CORPUSCULAR HGB CONC 34 % (32-36); MEAN CORPUSCULAR VOLUME 88 fL (79.0-98.0); MONOCYTES # (AUTO) 0.6 K/uL (0.0-1.0); NEUTROPHILS # (AUTO) 5.5 K/uL (1.8-7.7); NEUTROPHILS % (AUTO) 77.5 % (40.0-70.0); PLATELET COUNT (AUTO) 191 K/uL (130-430); RED BLOOD CELL COUNT(AUTO) 4.06 MIL/uL (4.2-6.2); RED CELL DISTRIBUTION WIDTH 13.7 % (9.0-15.0); WHITE BLOOD COUNT (AUTO) 7.1 K/uL (4.8-10.8)
[2023-04-29] MEDS: LIDOCAINE 4% PATCH TP SCH (19:00)
[2023-04-29 20:00] VITALS: BP_SYST 150; PULSE 92; RESP 18; TEMP 97.8; O2SAT 98; O2SAT 99
[2023-04-30 01:02] VITALS: BP_SYST 159; PULSE 94; RESP 16; TEMP 97.8; O2SAT 94
[2023-04-30] MEDS: KCL 40 mEq in D5W 1000 mL 1,000 ML IV SCH ×2 (05:15→16:09)
[2023-04-30] MEDS: NORMAL SALINE 5 ML DISP.SYRIN IVF SCH ×3 (05:26→20:25)
[2023-04-30 06:38] LABS: BASOPHILS % (AUTO) 0.2 % (0.0-2.0); HEMATOCRIT 33.4 % (36-48); HEMOGLOBIN 11.5 g/dL (12.0-16.0); LYMPHOCYTES # (AUTO) 0.9 K/uL (1.0-5.5); LYMPHOCYTES % (AUTO) 13.1 % (20.5-51.5); MEAN CORPUSCULAR HEMOGLOBIN 30 pg (27-31); MEAN CORPUSCULAR HGB CONC 35 % (32-36); MEAN CORPUSCULAR VOLUME 87 fL (79.0-98.0); MONOCYTES # (AUTO) 0.7 K/uL (0.0-1.0); MONOCYTES % (AUTO) 9.2 % (1.7-9.3); NEUTROPHILS # (AUTO) 5.5 K/uL (1.8-7.7); NEUTROPHILS % (AUTO) 77.5 % (40.0-70.0); PLATELET COUNT (AUTO) 187 K/uL (130-430); RED BLOOD CELL COUNT(AUTO) 3.82 MIL/uL (4.2-6.2); WHITE BLOOD COUNT (AUTO) 7.1 K/uL (4.8-10.8)
[2023-04-30 06:46] LABS: INR 1.1 (0.8-1.2); PROTHROMBIN TIME 11.3 SECS (9.5-12.5)
[2023-04-30 07:24] LABS: ANION GAP 10 (5-15); CALCIUM 8.4 mg/dL (8.4-11.0); CARBON DIOXIDE 24 mmol/L (23-29); CHLORIDE 104 mmol/L (98-107); CREATININE 1.06 mg/dL (0.55-1.30); GLUCOSE 119 mg/dL (74-106); POTASSIUM 3.1 mmol/L (3.5-5.1); SODIUM SERUM 138 mmol/L (136-145); UREA NITROGEN, BLOOD 10 mg/dL (8-21)
[2023-04-30 08:00] VITALS: BP_SYST 137; PULSE 82; RESP 16; TEMP 97.8; O2SAT 93
[2023-04-30] MEDS ORDERED: CEFAZOLIN 1 GM IVPB PREMIX 50 ML IV ONE (08:00)
[2023-04-30] MEDS ORDERED: fentaNYL CITRATE/PF 100 MCG/2 ML AMP ONE (10:50)
[2023-04-30] MEDS ORDERED: MIDAZOLAM HCL 5 MG/5 ML VIAL ONE (10:51)
[2023-04-30 15:53] VITALS: BP_SYST 146; PULSE 88; RESP 16; TEMP 98.2; O2SAT 96
[2023-04-30] MEDS: droNABinol 2.5 MG CAPSULE PO SCH (16:04)
[2023-04-30] MEDS: DONEPEZIL HCL 5 MG TABLET (ARICEPT) PO SCH (16:06)
[2023-04-30] MEDS: METOPROLOL SUCCINATE 25 MG TAB.SR.24H (TOPROL XL) PO SCH (16:07)
[2023-04-30] MEDS: MEMANTINE HCL 5 MG TABLET PO SCH ×2 (16:07→20:25)
[2023-04-30 20:00] VITALS: BP_SYST 127; PULSE 97; RESP 16; TEMP 97.2; O2SAT 95
[2023-05-01 01:12] VITALS: BP_SYST 112; PULSE 78; RESP 18; TEMP 96.8; O2SAT 98
[2023-05-01] MEDS: KCL 40 mEq in D5W 1000 mL 1,000 ML IV SCH ×3 (02:40→21:15)
[2023-05-01] MEDS: NORMAL SALINE 5 ML DISP.SYRIN IVF SCH ×3 (05:57→21:52)
[2023-05-01 06:06] LABS: HSV 1 IgG, TYPE SPECIFIC <0.91 index (0.00-0.90); HSV 2 IgG, TYPE SPECIFIC <0.91 index (0.00-0.90)
[2023-05-01 06:07] LABS: ANION GAP 6 (5-15); CALCIUM 8.6 mg/dL (8.4-11.0); CARBON DIOXIDE 26 mmol/L (23-29); CHLORIDE 104 mmol/L (98-107); CREATININE 0.96 mg/dL (0.55-1.30); GLUCOSE 105 mg/dL (74-106); POTASSIUM 4.2 mmol/L (3.5-5.1); SODIUM SERUM 136 mmol/L (136-145); UREA NITROGEN, BLOOD 11 mg/dL (8-21)
[2023-05-01 06:10] LABS: BASOPHILS % (AUTO) 0.1 % (0.0-2.0); EOSINOPHILS % (AUTO) 0.1 % (0.0-4.0); HEMATOCRIT 36.4 % (36-48); HEMOGLOBIN 12.2 g/dL (12.0-16.0); LYMPHOCYTES # (AUTO) 1.1 K/uL (1.0-5.5); LYMPHOCYTES % (AUTO) 12.2 % (20.5-51.5); MEAN CORPUSCULAR HEMOGLOBIN 30 pg (27-31); MEAN CORPUSCULAR HGB CONC 33 % (32-36); MEAN CORPUSCULAR VOLUME 89 fL (79.0-98.0); MONOCYTES # (AUTO) 0.7 K/uL (0.0-1.0); MONOCYTES % (AUTO) 7.4 % (1.7-9.3); NEUTROPHILS # (AUTO) 7.1 K/uL (1.8-7.7); NEUTROPHILS % (AUTO) 80.2 % (40.0-70.0); PLATELET COUNT (AUTO) 188 K/uL (130-430); RED BLOOD CELL COUNT(AUTO) 4.09 MIL/uL (4.2-6.2); RED CELL DISTRIBUTION WIDTH 14.2 % (9.0-15.0); WHITE BLOOD COUNT (AUTO) 8.9 K/uL (4.8-10.8)
[2023-05-01 08:00] VITALS: BP_SYST 124; PULSE 78; RESP 16; TEMP 98.2; O2SAT 97
[2023-05-01] MEDS: DONEPEZIL HCL 5 MG TABLET (ARICEPT) PO SCH (08:51)
[2023-05-01] MEDS: MEMANTINE HCL 5 MG TABLET PO SCH ×2 (08:52→21:51)
[2023-05-01] MEDS: METOPROLOL SUCCINATE 25 MG TAB.SR.24H (TOPROL XL) PO SCH (08:52)
[2023-05-01] MEDS: droNABinol 2.5 MG CAPSULE PO SCH (08:52)
[2023-05-01 09:20] VITALS: O2SAT 97
[2023-05-01 11:04] VITALS: BP_SYST 90; PULSE 81; RESP 16; TEMP 98.4; O2SAT 93
[2023-05-01 15:01] VITALS: BP_SYST 127; PULSE 83; RESP 16; TEMP 97; O2SAT 93
[2023-05-01] MEDS ORDERED: QUEtiapine FUMARATE 25 MG TABLET PO PRN (18:00)
[2023-05-01 19:00] VITALS: O2SAT 95
[2023-05-02 00:14] VITALS: BP_SYST 108; PULSE 94; RESP 20; TEMP 98.7; O2SAT 95
[2023-05-02] MEDS: NORMAL SALINE 5 ML DISP.SYRIN IVF SCH ×3 (06:00→21:33)
[2023-05-02] MEDS: KCL 40 mEq in D5W 1000 mL 1,000 ML IV SCH (07:15)
[2023-05-02 08:03] VITALS: BP_SYST 103; PULSE 81; RESP 18; TEMP 97.3; O2SAT 95
[2023-05-02] MEDS: MEMANTINE HCL 5 MG TABLET PO SCH ×2 (08:27→21:33)
[2023-05-02] MEDS: droNABinol 2.5 MG CAPSULE PO SCH (08:27)
[2023-05-02] MEDS: DONEPEZIL HCL 5 MG TABLET (ARICEPT) PO SCH (08:28)
[2023-05-02] MEDS: METOPROLOL SUCCINATE 25 MG TAB.SR.24H (TOPROL XL) PO SCH (09:00)
[2023-05-02 10:25] LABS: BASOPHILS % (AUTO) 0.1 % (0.0-2.0); EOSINOPHILS % (AUTO) 0.2 % (0.0-4.0); HEMATOCRIT 31.3 % (36-48); HEMOGLOBIN 10.3 g/dL (12.0-16.0); LYMPHOCYTES # (AUTO) 0.9 K/uL (1.0-5.5); LYMPHOCYTES % (AUTO) 10.1 % (20.5-51.5); MEAN CORPUSCULAR HEMOGLOBIN 30 pg (27-31); MEAN CORPUSCULAR HGB CONC 33 % (32-36); MEAN CORPUSCULAR VOLUME 91 fL (79.0-98.0); MONOCYTES # (AUTO) 0.7 K/uL (0.0-1.0); MONOCYTES % (AUTO) 8.4 % (1.7-9.3); NEUTROPHILS % (AUTO) 81.2 % (40.0-70.0); PLATELET COUNT (AUTO) 187 K/uL (130-430); RED BLOOD CELL COUNT(AUTO) 3.45 MIL/uL (4.2-6.2); RED CELL DISTRIBUTION WIDTH 14.1 % (9.0-15.0); WHITE BLOOD COUNT (AUTO) 8.6 K/uL (4.8-10.8)
[2023-05-02 10:47] LABS: ALANINE AMINOTRANSFERASE 36 U/L (12-78); ANION GAP 6 (5-15); ASPARTATE AMINOTRANSFERASE 50 U/L (10-37); CALCIUM 7.4 mg/dL (8.4-11.0); CARBON DIOXIDE 22 mmol/L (23-29); CHLORIDE 105 mmol/L (98-107); CREATININE 0.85 mg/dL (0.55-1.30); GLUCOSE 154 mg/dL (74-106); POTASSIUM 4.2 mmol/L (3.5-5.1); SODIUM SERUM 133 mmol/L (136-145); TOTAL BILIRUBIN 1.2 mg/dL (0.0-1.0); TOTAL PROTEIN, SERUM 4.9 g/dL (6.4-8.3); UREA NITROGEN, BLOOD 11 mg/dL (8-21)
[2023-05-02 11:13] VITALS: BP_SYST 95; PULSE 77; RESP 16; TEMP 97.7; O2SAT 96
[2023-05-02 11:17] VITALS: O2SAT 96
[2023-05-02 16:12] VITALS: BP_SYST 109; PULSE 84; RESP 16; TEMP 97.8; O2SAT 93
[2023-05-02 19:22] LABS: BASOPHILS % (AUTO) 0.1 % (0.0-2.0); LYMPHOCYTES # (AUTO) 0.9 K/uL (1.0-5.5); LYMPHOCYTES % (AUTO) 11.1 % (20.5-51.5); MEAN CORPUSCULAR HEMOGLOBIN 30 pg (27-31); NEUTROPHILS # (AUTO) 6.5 K/uL (1.8-7.7); PLATELET COUNT (AUTO) 212 K/uL (130-430); WHITE BLOOD COUNT (AUTO) 8.3 K/uL (4.8-10.8)
[2023-05-02 19:29] LABS: EOSINOPHILS % (AUTO) 0.3 % (0.0-4.0); HEMATOCRIT 35.4 % (36-48); HEMOGLOBIN 11.7 g/dL (12.0-16.0); MEAN CORPUSCULAR HGB CONC 33 % (32-36); MEAN CORPUSCULAR VOLUME 89 fL (79.0-98.0); MONOCYTES # (AUTO) 0.9 K/uL (0.0-1.0); MONOCYTES % (AUTO) 10.7 % (1.7-9.3); NEUTROPHILS % (AUTO) 77.8 % (40.0-70.0); RED BLOOD CELL COUNT(AUTO) 3.97 MIL/uL (4.2-6.2); RED CELL DISTRIBUTION WIDTH 14.4 % (9.0-15.0)
[2023-05-02 19:33] LABS: ALANINE AMINOTRANSFERASE 41 U/L (12-78); ALBUMIN 2.1 g/dL (3.4-4.8); ANION GAP 7 (5-15); ASPARTATE AMINOTRANSFERASE 56 U/L (10-37); CALCIUM 8.2 mg/dL (8.4-11.0); CARBON DIOXIDE 26 mmol/L (23-29); CHLORIDE 107 mmol/L (98-107); CREATININE 0.82 mg/dL (0.55-1.30); GLUCOSE 97 mg/dL (74-106); POTASSIUM 4.3 mmol/L (3.5-5.1); SODIUM SERUM 140 mmol/L (136-145); TOTAL PROTEIN, SERUM 5.7 g/dL (6.4-8.3); UREA NITROGEN, BLOOD 17 mg/dL (8-21)
[2023-05-02 20:30] VITALS: BP_SYST 125; PULSE 91; RESP 16; TEMP 99; O2SAT 94
[2023-05-03] VITALS: BP_SYST 108; PULSE 80; RESP 17; TEMP 98.7; O2SAT 94
[2023-05-03] MEDS: NORMAL SALINE 5 ML DISP.SYRIN IVF SCH ×3 (05:33→21:39)
[2023-05-03 07:15] LABS: BASOPHILS % (AUTO) 0.1 % (0.0-2.0); EOSINOPHILS % (AUTO) 0.4 % (0.0-4.0); HEMATOCRIT 35.6 % (36-48); HEMOGLOBIN 11.7 g/dL (12.0-16.0); LYMPHOCYTES # (AUTO) 1.2 K/uL (1.0-5.5); LYMPHOCYTES % (AUTO) 14.4 % (20.5-51.5); MEAN CORPUSCULAR HEMOGLOBIN 30 pg (27-31); MEAN CORPUSCULAR HGB CONC 33 % (32-36); MEAN CORPUSCULAR VOLUME 90 fL (79.0-98.0); MONOCYTES # (AUTO) 0.9 K/uL (0.0-1.0); MONOCYTES % (AUTO) 10.9 % (1.7-9.3); NEUTROPHILS # (AUTO) 6.4 K/uL (1.8-7.7); NEUTROPHILS % (AUTO) 74.2 % (40.0-70.0); PLATELET COUNT (AUTO) 218 K/uL (130-430); RED BLOOD CELL COUNT(AUTO) 3.97 MIL/uL (4.2-6.2); RED CELL DISTRIBUTION WIDTH 14.6 % (9.0-15.0); WHITE BLOOD COUNT (AUTO) 8.6 K/uL (4.8-10.8)
[2023-05-03 07:23] LABS: ALANINE AMINOTRANSFERASE 40 U/L (12-78); ANION GAP 8 (5-15); ASPARTATE AMINOTRANSFERASE 46 U/L (10-37); CALCIUM 7.9 mg/dL (8.4-11.0); CARBON DIOXIDE 26 mmol/L (23-29); CHLORIDE 103 mmol/L (98-107); CREATININE 0.73 mg/dL (0.55-1.30); GLUCOSE 93 mg/dL (74-106); POTASSIUM 4.2 mmol/L (3.5-5.1); SODIUM SERUM 137 mmol/L (136-145); TOTAL BILIRUBIN 0.9 mg/dL (0.0-1.0); TOTAL PROTEIN, SERUM 5.5 g/dL (6.4-8.3); UREA NITROGEN, BLOOD 15 mg/dL (8-21)
[2023-05-03 08:15] VITALS: O2SAT 96
[2023-05-03] MEDS: DONEPEZIL HCL 5 MG TABLET (ARICEPT) PO SCH (10:16)
[2023-05-03] MEDS: MEMANTINE HCL 5 MG TABLET PO SCH ×2 (10:16→21:38)
[2023-05-03] MEDS: METOPROLOL SUCCINATE 25 MG TAB.SR.24H (TOPROL XL) PO SCH (10:17)
[2023-05-03] MEDS: droNABinol 2.5 MG CAPSULE PO SCH (10:33)
[2023-05-03 12:02] VITALS: BP_SYST 117; PULSE 77; RESP 16; TEMP 98.9; O2SAT 98
[2023-05-03 16:23] VITALS: BP_SYST 111; PULSE 78; RESP 17; TEMP 98.8; O2SAT 96
[2023-05-03 20:15] VITALS: RESP 18; TEMP 97.7; O2SAT 96
[2023-05-03 21:33] VITALS: RESP 18; TEMP 97.7
[2023-05-04] MEDS: NORMAL SALINE 5 ML DISP.SYRIN IVF SCH ×2 (05:44→14:00)
[2023-05-04 08:10] VITALS: O2SAT 98
[2023-05-04 08:30] LABS: BASOPHILS % (AUTO) 0.2 % (0.0-2.0); EOSINOPHILS # (AUTO) 0.1 K/uL (0.0-0.4); HEMATOCRIT 35.7 % (36-48); LYMPHOCYTES # (AUTO) 1.3 K/uL (1.0-5.5); LYMPHOCYTES % (AUTO) 16.2 % (20.5-51.5); MEAN CORPUSCULAR HEMOGLOBIN 30 pg (27-31); MEAN CORPUSCULAR HGB CONC 34 % (32-36); MEAN CORPUSCULAR VOLUME 89 fL (79.0-98.0); MONOCYTES # (AUTO) 0.7 K/uL (0.0-1.0); MONOCYTES % (AUTO) 9.3 % (1.7-9.3); NEUTROPHILS # (AUTO) 5.7 K/uL (1.8-7.7); NEUTROPHILS % (AUTO) 73.3 % (40.0-70.0); PLATELET COUNT (AUTO) 281 K/uL (130-430); RED BLOOD CELL COUNT(AUTO) 4.02 MIL/uL (4.2-6.2); RED CELL DISTRIBUTION WIDTH 14.2 % (9.0-15.0); WHITE BLOOD COUNT (AUTO) 7.8 K/uL (4.8-10.8)
[2023-05-04 08:40] LABS: ALANINE AMINOTRANSFERASE 48 U/L (12-78); ALBUMIN 2.2 g/dL (3.4-4.8); ANION GAP 5 (5-15); ASPARTATE AMINOTRANSFERASE 53 U/L (10-37); CALCIUM 8.2 mg/dL (8.4-11.0); CARBON DIOXIDE 28 mmol/L (23-29); CHLORIDE 103 mmol/L (98-107); GLUCOSE 84 mg/dL (74-106); POTASSIUM 4.1 mmol/L (3.5-5.1); SODIUM SERUM 136 mmol/L (136-145); UREA NITROGEN, BLOOD 15 mg/dL (8-21)
[2023-05-04] MEDS: METOPROLOL SUCCINATE 25 MG TAB.SR.24H (TOPROL XL) PO SCH (09:00)
[2023-05-04] MEDS: droNABinol 2.5 MG CAPSULE PO SCH (09:00)
[2023-05-04] MEDS: DONEPEZIL HCL 5 MG TABLET (ARICEPT) PO SCH (09:56)
[2023-05-04] MEDS: MEMANTINE HCL 5 MG TABLET PO SCH (09:56)
[2023-05-04 11:06] VITALS: BP_SYST 99; PULSE 103; RESP 16; TEMP 97; O2SAT 93
[2023-05-04 15:05] VITALS: BP_SYST 100; PULSE 100; RESP 16; TEMP 97.7; O2SAT 93
[2023-05-04 16:14] VITALS: BP_SYST 100; PULSE 100; RESP 17; TEMP 97.7; O2SAT 93
[2023-05-05 11:07] LABS: WEST NILE VIRUS, IgG, SERUM Negative (Negative)
== END 2023-05-04 16:57 | DRG 551 ==
LOC: SED 11:25 → SMU 14:23
PROVIDERS: ADMIT Preventive Medicine Preventive Medicine/Occupational Environmental Medicine; ATTEND Specialist
PROC: 0DH63UZ Insertion of Feeding Device into Stomach, Percutaneous Approach (ICD-10-PCS; principal; 2023-04-29 11:00)
PROC: 0DC68ZZ Extirpation of Matter from Stomach, Via Natural or Artificial Opening Endoscopic (ICD-10-PCS; 2023-04-30)
PROC: 0DH63UZ Insertion of Feeding Device into Stomach, Percutaneous Approach (ICD-10-PCS; 2023-04-30 11:50)
DX: S32.019A Unspecified fracture of first lumbar vertebra, initial encounter for closed fracture (principal); J69.0 Pneumonitis due to inhalation of food and vomit; F05 Delirium due to known physiological condition; T85.528A Displacement of other gastrointestinal prosthetic devices, implants and grafts, initial encounter; F03.90 Unspecified dementia, unspecified severity, without behavioral disturbance, psychotic disturbance, mood disturbance, and anxiety; M54.9 Dorsalgia, unspecified; E87.5 Hyperkalemia; E78.5 Hyperlipidemia, unspecified; R53.81 Other malaise; M47.816 Spondylosis without myelopathy or radiculopathy, lumbar region; T38.0X5A Adverse effect of glucocorticoids and synthetic analogues, initial encounter; I10 Essential (primary) hypertension; M41.9 Scoliosis, unspecified; R62.7 Adult failure to thrive; M16.0 Bilateral primary osteoarthritis of hip; M85.80 Other specified disorders of bone density and structure, unspecified site; Z79.01 Long term (current) use of anticoagulants; I69.391 Dysphagia following cerebral infarction; Z68.21 Body mass index [BMI] 21.0-21.9, adult
CPT/HCPCS: 36415; 43246; 43247; 70450-TC; 71045; 72100-TC; 72131; 72170-TC; 72192-TC; 76376; 80048; 80053; 85025; 85610-TC; 85651-TC; 85730-TC; 86695; 86696; 86788; 86789; 87040; 97110-GP; 97163-GP; 97530-GP; 99285; J0133; J0690; J0696; J2060; J2250; J2310; J3010; J3475; J3480; J7060; Q0167